=== PATIENT | male | born 1940 | race Two or more races ===

== ENCOUNTER 2021-11-25 01:33 | Emergency (ER) | payer MEDICARE ==
[~2021-11-25] VITALS: Ht 157.5 cm; Wt 68.0 kg
[2021-11-25 01:36] VITALS: BP_SYST 166
--- NOTE | 2021-11-25 01:41 | NUR ---
JAZZ Zepeda at bedside examining patient.
--- NOTE | 2021-11-25 01:41 | NUR ---
Placed in room 8 . Placed on cryolite recovery operator, blood pressure machine and pulse oximeter. To gown for exam. Side rails up. Report given to SAMANTHA Galeano.
--- NOTE | 2021-11-25 01:50 | NUR ---
DR. TERRY WITH PATIENT PERFORMING ASSESSMENT.
[2021-11-25] MEDS ORDERED: PRED20TA PO (02:03)
[2021-11-25] MEDS ORDERED: IBUP-1969 PO (02:03)
[2021-11-25 02:05] VITALS: BP_SYST 150
[2021-11-25] MEDS ORDERED: IBUPROFEN 600 MG TABLET PO ONE (02:15)
--- NOTE | 2021-11-25 02:52 | NUR ---
PATIENT RESTING IN BED WITH EYES OPEN WAITING FOR HIS SON TO PICK HIM UP. PATIENT HAS NO C/O PAIN OR S/S OF DISCOMFORT. PATIENT'S CHEST RISE AND FALL SYMMETRICAL. BED IN LOW AND LOCKED POSITION. PATIENT STATED THAT HE "HAD A LITTLE PAIN," AND WAS ADMINISTERED 600MG MOTRIN PO. PATIENT SWALLOWED MEDICATION WITH NO PROBLEMS.
--- NOTE | 2021-11-25 03:17 | NUR ---
PATIENT VERBALIZED UNDERSTANDING OF AFTERCARE INSTRUCTIONS, NO FURTHER QUESTIONS. PATIENT LEFT WITH ALL BELONGINGS. PATIENT A/OX4, NO C/O PAIN, AND PATIENT HAS STRONG GAIT. PATIENT'S SON ARRIVED AT HOSPITAL AND PICKED HIM UP.
== END 2021-11-25 03:17 | disposition home or self-care (01) ==
LOC: SED 01:33
DX: J02.9 Acute pharyngitis, unspecified (principal); E11.9 Type 2 diabetes mellitus without complications
CPT/HCPCS: 99283

== ENCOUNTER 2022-02-01 01:09 | Inpatient (IN) | payer BC, MEDICARE ==
[~2022-02-01] VITALS: Ht 157.5 cm; Wt 68.0 kg
[~2022-02-01 01:09] MED LIST: IBUP-1969 PO; PRED20TA PO
[2022-02-01 01:15] VITALS: BP_SYST 131
[2022-02-01] MEDS ORDERED: MV-M1TAB19 PO (01:33)
[2022-02-01] MEDS ORDERED: PRAV40TA63 PO (01:35)
[2022-02-01] MEDS ORDERED: SYN50 PO (01:37)
[2022-02-01] MEDS ORDERED: CYAN1TAB47 PO (01:37)
[2022-02-01] MEDS ORDERED: CHOL100035 PO (01:38)
[2022-02-01 03:23] LABS: BASOPHILS % (AUTO) 0.3 % (0.0-2.0); HEMATOCRIT 45.2 % (36-54); HEMOGLOBIN 14.7 g/dL (14.0-18.0); LYMPHOCYTES # (AUTO) 0.9 K/uL (1.0-5.5); LYMPHOCYTES % (AUTO) 7.7 % (20.5-51.5); MEAN CORPUSCULAR HEMOGLOBIN 27 pg (27-31); MEAN CORPUSCULAR HGB CONC 33 % (32-36); MEAN CORPUSCULAR VOLUME 82 fL (79.0-98.0); MONOCYTES # (AUTO) 0.5 K/uL (0.0-1.0); MONOCYTES % (AUTO) 4.5 % (1.7-9.3); NEUTROPHILS # (AUTO) 10.4 K/uL (1.8-7.7); NEUTROPHILS % (AUTO) 87.5 % (40.0-70.0); PLATELET COUNT (AUTO) 227 K/uL (130-430); RED BLOOD CELL COUNT(AUTO) 5.51 MIL/uL (4.2-6.2); WHITE BLOOD COUNT (AUTO) 11.9 K/uL (4.8-10.8)
[2022-02-01 03:24] LABS: ANION GAP 10 (5-15); CALCIUM 10.1 mg/dL (8.4-11.0); CHLORIDE 102 mmol/L (98-107); CREATININE 1.21 mg/dL (0.55-1.30); GLUCOSE 165 mg/dL (70-99); POTASSIUM 4.3 mmol/L (3.5-5.1); SODIUM SERUM 139 mmol/L (136-145); UREA NITROGEN, BLOOD 22 mg/dL (8-21)
[2022-02-01 03:32] LABS: ALANINE AMINOTRANSFERASE 25 U/L (12-78); ALBUMIN 3.9 g/dL (3.4-4.8); ASPARTATE AMINOTRANSFERASE 20 U/L (10-37); LIPASE 78 U/L (73-393); TOTAL BILIRUBIN 0.5 mg/dL (0.0-1.0)
[2022-02-01 03:42] LABS: BILIRUBIN,URINE NEGATIVE (NEGATIVE); BLOOD, URINE NEGATIVE (NEGATIVE); CLARITY/URINE CLEAR (CLEAR); COLOR,URINE YELLOW (YELLOW); GLUCOSE,URINE NEGATIVE (NEGATIVE); KETONES,URINE TRACE (NEGATIVE); LEUKOCYTE ESTERASE ,URINE NEGATIVE (NEGATIVE); NITRITE, URINE NEGATIVE (NEGATIVE); PROTEIN URINE 2+ (NEGATIVE); UROBILINOGEN,URINE 0.2 (0.2-1.0)
[2022-02-01] MEDS ORDERED: MORPHINE 2 MG/ML INJ. SYRINGE IVP ONE (04:30)
[2022-02-01] MEDS ORDERED: ONDANSETRON HCL 4 MG/2 ML VIAL IVP PRN (04:30)
[2022-02-01] MEDS ORDERED: ONDANSETRON HCL 4 MG/2 ML VIAL IVP ONE (04:30)
[2022-02-01] MEDS ORDERED: MORPHINE 2 MG/ML INJ. SYRINGE IVP PRN (04:30)
[2022-02-01] MEDS ORDERED: NACL 0.9% 1,000 ML IV ONE (04:30)
[2022-02-01 08:14] VITALS: BP_SYST 155
[2022-02-01] MEDS: D5LR 1,000 ML IV SCH ×2 (08:50→17:25)
[2022-02-01] MEDS ORDERED: DEXTROSE 50% JECT 50 ML DISP.SYRIN IVP PRN (11:00)
[2022-02-01 12:00] VITALS: BP_SYST 150
[2022-02-01] MEDS ORDERED: GASTROGRAFIN 120 ML ONE (12:14)
[2022-02-01 15:41] VITALS: BP_SYST 148
[2022-02-01 20:13] VITALS: BP_SYST 145
[2022-02-01] MEDS: INSULIN REGULAR, HUMAN 100 UNITS/ML, 10 ML VIAL (humuLIN R) SUBCUT PRN (20:23)
[2022-02-02 00:25] VITALS: BP_SYST 142
[2022-02-02] MEDS: D5LR 1,000 ML IV SCH ×2 (02:40→12:27)
[2022-02-02 07:07] LABS: BASOPHILS % (AUTO) 0.3 % (0.0-2.0); EOSINOPHILS # (AUTO) 0.1 K/uL (0.0-0.4); EOSINOPHILS % (AUTO) 1.4 % (0.0-4.0); HEMATOCRIT 43.3 % (36-54); HEMOGLOBIN 13.7 g/dL (14.0-18.0); LYMPHOCYTES # (AUTO) 1.7 K/uL (1.0-5.5); LYMPHOCYTES % (AUTO) 19.2 % (20.5-51.5); MEAN CORPUSCULAR HEMOGLOBIN 26 pg (27-31); MEAN CORPUSCULAR HGB CONC 32 % (32-36); MEAN CORPUSCULAR VOLUME 83 fL (79.0-98.0); MONOCYTES # (AUTO) 0.7 K/uL (0.0-1.0); MONOCYTES % (AUTO) 8.4 % (1.7-9.3); NEUTROPHILS # (AUTO) 6.2 K/uL (1.8-7.7); NEUTROPHILS % (AUTO) 70.7 % (40.0-70.0); PLATELET COUNT (AUTO) 210 K/uL (130-430); RED CELL DISTRIBUTION WIDTH 14.1 % (9.0-15.0); WHITE BLOOD COUNT (AUTO) 8.7 K/uL (4.8-10.8)
[2022-02-02 08:17] LABS: ALANINE AMINOTRANSFERASE 23 U/L (12-78); ALBUMIN 3.3 g/dL (3.4-4.8); ANION GAP 10 (5-15); ASPARTATE AMINOTRANSFERASE 20 U/L (10-37); CHLORIDE 104 mmol/L (98-107); CREATININE 1.03 mg/dL (0.55-1.30); GLUCOSE 114 mg/dL (70-99); POTASSIUM 4.5 mmol/L (3.5-5.1); SODIUM SERUM 140 mmol/L (136-145); TOTAL BILIRUBIN 0.6 mg/dL (0.0-1.0); UREA NITROGEN, BLOOD 12 mg/dL (8-21)
[2022-02-02 08:30] VITALS: BP_SYST 143
[2022-02-02] MEDS: INSULIN REGULAR, HUMAN 100 UNITS/ML, 10 ML VIAL (humuLIN R) SUBCUT PRN (12:28)
[2022-02-02 12:30] VITALS: BP_SYST 138
[2022-02-02 18:15] VITALS: BP_SYST 138
== END 2022-02-02 18:30 | disposition home or self-care (01) | DRG 389 ==
LOC: SED 01:09 → STU 04:29
PROVIDERS: ADMIT Internal Medicine; ATTEND Internal Medicine
PROC: 0D9670Z Drainage of Stomach with Drainage Device, Via Natural or Artificial Opening (ICD-10-PCS; principal; 2022-02-01)
DX: K56.609 Unspecified intestinal obstruction, unspecified as to partial versus complete obstruction (principal); E44.1 Mild protein-calorie malnutrition; E11.9 Type 2 diabetes mellitus without complications; E03.9 Hypothyroidism, unspecified; Z20.822 Contact with and (suspected) exposure to COVID-19; Z68.27 Body mass index [BMI] 27.0-27.9, adult
CPT/HCPCS: 36415; 71045; 71250-TC; 74018; 74250-TC; 76376; 80053; 81003; 82962; 83690; 84484; 85025; 96360; 99285; G0378; J1815; Q9963

== ENCOUNTER 2022-05-24 20:54 | Emergency (ER) | payer BC ==
[~2022-05-24] VITALS: Ht 152.4 cm; Wt 73.5 kg
[~2022-05-24 20:54] MED LIST changes: +CHOL100035 PO; +CYAN1TAB47 PO; +MV-M1TAB19 PO; +PRAV40TA63 PO; -PRED20TA PO; +SYN50 PO
[2022-05-24 21:25] VITALS: BP_SYST 153
[2022-05-24 22:49] LABS: BASOPHILS % (AUTO) 0.5 % (0.0-2.0); EOSINOPHILS # (AUTO) 0.1 K/uL (0.0-0.4); HEMATOCRIT 41.7 % (36-54); LYMPHOCYTES % (AUTO) 13.1 % (20.5-51.5); MEAN CORPUSCULAR HEMOGLOBIN 28 pg (27-31); MEAN CORPUSCULAR HGB CONC 34 % (32-36); MEAN CORPUSCULAR VOLUME 82 fL (79.0-98.0); MONOCYTES # (AUTO) 0.5 K/uL (0.0-1.0); MONOCYTES % (AUTO) 6.8 % (1.7-9.3); NEUTROPHILS # (AUTO) 5.8 K/uL (1.8-7.7); NEUTROPHILS % (AUTO) 78.6 % (40.0-70.0); PLATELET COUNT (AUTO) 198 K/uL (130-430); RED BLOOD CELL COUNT(AUTO) 5.09 MIL/uL (4.2-6.2); RED CELL DISTRIBUTION WIDTH 13.9 % (9.0-15.0); WHITE BLOOD COUNT (AUTO) 7.4 K/uL (4.8-10.8)
[2022-05-24 22:57] LABS: BILIRUBIN,URINE NEGATIVE (NEGATIVE); CLARITY/URINE CLEAR (CLEAR); COLOR,URINE YELLOW (YELLOW); GLUCOSE,URINE NEGATIVE (NEGATIVE); KETONES,URINE NEGATIVE (NEGATIVE); LEUKOCYTE ESTERASE ,URINE NEGATIVE (NEGATIVE); NITRITE, URINE NEGATIVE (NEGATIVE); PROTEIN URINE NEGATIVE (NEGATIVE); UROBILINOGEN,URINE 0.2 (0.2-1.0)
[2022-05-24 23:08] LABS: ANION GAP 8 (5-15); CALCIUM 9.1 mg/dL (8.4-11.0); CHLORIDE 102 mmol/L (98-107); CREATININE 1.01 mg/dL (0.55-1.30); GLUCOSE 112 mg/dL (70-99); POTASSIUM 3.7 mmol/L (3.5-5.1); SODIUM SERUM 136 mmol/L (136-145); UREA NITROGEN, BLOOD 14 mg/dL (8-21)
[2022-05-24 23:13] LABS: ALANINE AMINOTRANSFERASE 22 U/L (12-78); ALBUMIN 3.6 g/dL (3.4-4.8); ASPARTATE AMINOTRANSFERASE 23 U/L (10-37); TOTAL BILIRUBIN 0.6 mg/dL (0.0-1.0)
[2022-05-24 23:27] LABS: BLOOD, URINE TRACE (NEGATIVE)
[2022-05-25] MEDS ORDERED: NACL 0.9% 1,000 ML IV ONE ×2 (01:30→02:30)
[2022-05-25 01:39] LABS: BACTERIA,URINE None Seen /HPF (None Seen); RBC,URINE 0-3 /HPF (0-3); WBC,URINE NONE SEEN /HPF (0-3)
[2022-05-25 01:58] LABS: INR 1.1 (0.80-1.20); PROTHROMBIN TIME 10.7 SECS (9.5-12.5)
[2022-05-25 02:20] LABS: LIPASE 94 U/L (73-393)
[2022-05-25] MEDS ORDERED: ONDANSETRON HCL 4 MG/2 ML VIAL IVP ONE (02:30)
[2022-05-25] MEDS ORDERED: POLY17PO4 PO (05:07)
[2022-05-25] MEDS ORDERED: DOCU-144 PO (05:07)
[2022-05-25 05:30] VITALS: BP_SYST 151
== END 2022-05-25 05:30 | disposition home or self-care (01) ==
LOC: SED 20:54
DX: K59.00 Constipation, unspecified (principal); R11.0 Nausea; Z79.899 Other long term (current) drug therapy
CPT/HCPCS: 99285; 80053; 81000; 82962; 83690; 85025; 85610; 84484; 36415; 74176; 96374; 96361; 93005; 76376; J2405; J7030

== ENCOUNTER 2023-03-26 00:24 | Emergency (ER) | payer BC ==
[~2023-03-26] VITALS: Ht 157.5 cm; Wt 72.6 kg
[~2023-03-26 00:24] MED LIST changes: +DOCU-144 PO; +POLY17PO4 PO
[2023-03-26 00:36] VITALS: BP_SYST 157
--- NOTE | 2023-03-26 00:36 | NUR ---
Patient to ER bed 8 to gown for evaluation. Side rails up. Report given to YAS ROSS.
--- NOTE | 2023-03-26 00:42 | NUR ---
Pt bib son from home, ambulated to bed 8. Pt A&Ox4, able to make needs known. Pt c/o extremity numbness, swelling of his "thingy," intermittent dizzinezz and nausea q2days. Pt c/o right lower leg pain. Pt rates pain 4/10. Pt denies fall. Pt denies SOB and chest pain. Pt denies N/V/D, fever and chills. Safety precaution in place.
[2023-03-26 01:31] LABS: BILIRUBIN,URINE NEGATIVE (NEGATIVE); BLOOD, URINE NEGATIVE (NEGATIVE); CLARITY/URINE CLEAR (CLEAR); COLOR,URINE YELLOW (YELLOW); GLUCOSE,URINE NEGATIVE (NEGATIVE); KETONES,URINE NEGATIVE (NEGATIVE); LEUKOCYTE ESTERASE ,URINE NEGATIVE (NEGATIVE); NITRITE, URINE NEGATIVE (NEGATIVE); PH,URINE 6.5 (5.0-8.0); PROTEIN URINE NEGATIVE (NEGATIVE); UROBILINOGEN,URINE 0.2 (0.2-1.0)
[2023-03-26 01:52] LABS: BASOPHILS % (AUTO) 0.2 % (0.0-2.0); EOSINOPHILS # (AUTO) 0.1 K/uL (0.0-0.4); EOSINOPHILS % (AUTO) 1.2 % (0.0-4.0); HEMATOCRIT 40.1 % (36-54); HEMOGLOBIN 13.1 g/dL (14.0-18.0); LYMPHOCYTES # (AUTO) 1.4 K/uL (1.0-5.5); MEAN CORPUSCULAR HEMOGLOBIN 27 pg (27-31); MEAN CORPUSCULAR HGB CONC 33 % (32-36); MEAN CORPUSCULAR VOLUME 83 fL (79.0-98.0); MONOCYTES # (AUTO) 0.6 K/uL (0.0-1.0); MONOCYTES % (AUTO) 8.4 % (1.7-9.3); NEUTROPHILS % (AUTO) 70.2 % (40.0-70.0); PLATELET COUNT (AUTO) 197 K/uL (130-430); RED BLOOD CELL COUNT(AUTO) 4.85 MIL/uL (4.2-6.2); RED CELL DISTRIBUTION WIDTH 14.2 % (9.0-15.0); WHITE BLOOD COUNT (AUTO) 7.1 K/uL (4.8-10.8)
[2023-03-26 02:08] LABS: ANION GAP 6 (5-15); CALCIUM 7.9 mg/dL (8.4-11.0); CHLORIDE 104 mmol/L (98-107); CREATININE 0.97 mg/dL (0.55-1.30); GLUCOSE 100 mg/dL (70-99); UREA NITROGEN, BLOOD 12 mg/dL (8-21)
[2023-03-26 02:17] LABS: ALANINE AMINOTRANSFERASE 34 U/L (12-78); ALBUMIN 3.4 g/dL (3.4-4.8); ASPARTATE AMINOTRANSFERASE 24 U/L (10-37); TOTAL BILIRUBIN 0.7 mg/dL (0.0-1.0)
[2023-03-26] MEDS ORDERED: GABA-529 PO (02:53)
[2023-03-26 03:00] VITALS: BP_SYST 155
--- NOTE | 2023-03-26 03:00 | NUR ---
Patient given written and verbal discharge instructions and verbalizes understanding. ER Dr Restrepo discussed with patient the results and treatment provided. Patient in stable condition. ID arm band removed. Rx of Gabapentin given. Patient educated on pain management and to follow up with PMD. Pain Scale 0/10. Opportunity for questions provided and answered. Medication side effect fact sheet provided.
[2023-03-26] MEDS ORDERED: ONDA-8 TL (03:02)
== END 2023-03-26 03:00 | disposition home or self-care (01) ==
LOC: SED 00:24
DX: R60.9 Edema, unspecified (principal); R20.2 Paresthesia of skin; R53.1 Weakness; R03.0 Elevated blood-pressure reading, without diagnosis of hypertension; R35.89 Other polyuria; E11.9 Type 2 diabetes mellitus without complications; Z79.899 Other long term (current) drug therapy
CPT/HCPCS: 36415; 80053; 81003; 82962; 83880; 84484; 85025; 93005; 99284